=== PATIENT | male | born 1960 | race Caucasian/White ===

== ENCOUNTER 2020-07-02 23:52 | Emergency (ER) | payer MEDICARE, MEDICAID ==
[~2020-07-02] VITALS: Ht 177.8 cm; Wt 68.0 kg
[~2020-07-02 23:52] MED LIST: ASCO500C49 PO; ASPI81CH43 PO; DOCU-94 PO; HYDR12.56 PO; MAGN400S25 PO; MULT-351 PO; PEPCID PO
[2020-07-03 00:05] VITALS: BP 135/73
== END 2020-07-03 09:24 | disposition home or self-care (01) ==
LOC: EDBD 23:52 → ER 23:52
DX: S09.8XXA Other specified injuries of head, initial encounter (principal); R41.82 Altered mental status, unspecified; I10 Essential (primary) hypertension; Z86.73 Personal history of transient ischemic attack (TIA), and cerebral infarction without residual deficits; X58.XXXA Exposure to other specified factors, initial encounter; Y93.89 Activity, other specified; Y92.89 Other specified places as the place of occurrence of the external cause; Y99.8 Other external cause status
CPT/HCPCS: 70450

== ENCOUNTER 2022-05-24 20:03 | Inpatient (IN) | payer MEDICARE, MEDICAID ==
[~2022-05-24] VITALS: Ht 177.8 cm; Wt 75.7 kg
[2022-05-24] MEDS ORDERED: methylPREDNISolone SOD SUCC 125 MG/2 ML VL IV ONE (20:30)
[2022-05-24 21:15] LABS: Basophils # (auto) 0 10 ^3/uL (0-0.2); Basophils % (auto) 0.2 % (0.0-2.0); Eosinophils # (auto) 0 10 ^3/uL (0-0.8); Hematocrit 40.8 % (41.0-53.0); Hemoglobin 13.6 g/dL (13.5-17.5); Lymphocytes # (auto) 1.1 10 ^3/uL (0.4-5.4); Lymphocytes % (auto) 14.3 % (10.0-50.0); Mean Corpuscular Hgb Conc. 33.4 g/dL (32.0-36.0); Monocytes # (auto) 0.8 10 ^3/uL (0-1.3); Neutrophils % (auto) 75.5 % (37.0-80.0); Nucleated Red Blood Cells % 0.1 %; Red Blood Cells 4.54 10^6/uL (4.5-5.90); Red Cell Distribution Width 13.7 % (11.8-14.3)
[2022-05-24 21:34] LABS: Albumin 3.3 g/dL (3.4-5.0); BUN/Creatinine Ratio 18.8; Calcium 8.7 mg/dL (8.5-10.1); Magnesium 2.1 mg/dL (1.6-2.6); Potassium 3.9 mmol/L (3.5-5.1)
[2022-05-24 21:37] LABS: Bilirubin, Total 0.9 mg/dL (0.2-1.0); Total Protein 6.7 g/dL (6.4-8.2)
[2022-05-24] MEDS ORDERED: ALBUTEROL SULF 2.5 MG/0.5ML(0.5%) NEB SOLN NEB PRN (22:30)
[2022-05-24] MEDS ORDERED: ONDANSETRON HCL 4 MG/2 ML VIAL IV PRN (22:30)
[2022-05-24] MEDS ORDERED: ACETAMINOPHEN 325 MG TAB PO PRN (22:30)
[2022-05-24] MEDS ORDERED: DOCUSATE SOD 100 MG CAP PO PRN (22:30)
[2022-05-24] MEDS ORDERED: MORPHINE SULFATE INJ 2 MG/ml SYRG IV PRN ×2 (22:30)
[2022-05-24] MEDS ORDERED: TEMAZEPAM 15 MG CAP PO PRN (22:30)
[2022-05-24] MEDS ORDERED: NITROGLYCERIN 0.4 MG SL TAB SL PRN (22:30)
[2022-05-25] MEDS: AZITHROMYCIN 500MG/ 250ML 250 ML IV SCH ×2 (00:23→21:20)
[2022-05-25 03:22] LABS: Basophils # (auto) 0 10 ^3/uL (0-0.2); Basophils % (auto) 0.2 % (0.0-2.0); Eosinophils # (auto) 0 10 ^3/uL (0-0.8); Hematocrit 41.5 % (41.0-53.0); Hemoglobin 13.9 g/dL (13.5-17.5); Lymphocytes # (auto) 0.7 10 ^3/uL (0.4-5.4); Lymphocytes % (auto) 9.7 % (10.0-50.0); Mean Corpuscular Hemoglobin 30.3 pg (28.0-32.0); Mean Corpuscular Hgb Conc. 33.4 g/dL (32.0-36.0); Mean Corpuscular Volume 90.6 fL (80.0-100.0); Monocytes # (auto) 0.2 10 ^3/uL (0-1.3); Monocytes % (auto) 3.3 % (0.0-12.0); Neutrophils # (auto) 6.6 10 ^3/uL (1.6-8.6); Neutrophils % (auto) 86.8 % (37.0-80.0); Nucleated Red Blood Cells % 0.1 %; Red Blood Cells 4.58 10^6/uL (4.5-5.90); Red Cell Distribution Width 13.6 % (11.8-14.3); White Blood Cell 7.6 10^3/uL (4.4-10.8)
[2022-05-25 03:43] LABS: Albumin 3.3 g/dL (3.4-5.0); BUN/Creatinine Ratio 24.3; Calcium 8.8 mg/dL (8.5-10.1); Total Protein 7.3 g/dL (6.4-8.2)
[2022-05-25] MEDS: ENOXAPARIN SOD 40 MG/0.4 ML SYRINGE SC SCH (09:54)
[2022-05-25 11:57] VITALS: BP 119/72
[2022-05-25 16:00] VITALS: BP 127/72
[2022-05-25 20:00] VITALS: BP 144/72
[2022-05-25] MEDS: DOCUSATE SOD 100 MG CAP PO SCH (21:20)
[2022-05-25 22:00] VITALS: BP 144/72
[2022-05-26] VITALS: BP 140/75
[2022-05-26 05:00] VITALS: BP 116/60
[2022-05-26 08:00] VITALS: BP 134/70
[2022-05-26] MEDS: cefTRIAXone 1GM/50ML D5W 50 ML IV SCH (08:07)
[2022-05-26] MEDS: DexAMETHasone SOD PHOS 10MG/1ML VIAL INJ IV SCH (08:08)
[2022-05-26] MEDS: ENOXAPARIN SOD 40 MG/0.4 ML SYRINGE SC SCH (08:08)
[2022-05-26] MEDS: MILK OF MAGNESIA 30ML SUSP PO SCH (08:09)
[2022-05-26] MEDS: HCTZ 25 MG TAB PO SCH (08:09)
[2022-05-26] MEDS: ASPirin 81 mg TAB PO SCH (08:09)
[2022-05-26] MEDS: DOCUSATE SOD 100 MG CAP PO SCH ×2 (08:09→22:02)
[2022-05-26] MEDS: ASCORBIC ACID 500 MG TAB PO SCH (08:09)
[2022-05-26] MEDS: ZINC SULFATE 220mg CAP or TAB PO SCH (08:09)
[2022-05-26] MEDS: FAMOTIDINE (10MG/ML) 2ML VL IV SCH (08:09)
[2022-05-26] MEDS: MULTIPLE VITAMINS W/ MINERALS TAB PO SCH (08:10)
[2022-05-26] MEDS: CHOLECALCIFEROL (VITD3) 1,000UNIT=25mCg TAB PO SCH (08:10)
[2022-05-26 13:00] VITALS: BP 128/62
[2022-05-26 16:00] VITALS: BP 140/71
[2022-05-26 22:00] VITALS: BP 132/74
[2022-05-26] MEDS: AZITHROMYCIN 500MG/ 250ML 250 ML IV SCH (22:02)
[2022-05-27] VITALS (9 sets, daily range): BP systolic 104–129; BP diastolic 57–76
[2022-05-27 05:43] LABS: Calcium 8.8 mg/dL (8.5-10.1); Potassium 3.9 mmol/L (3.5-5.1)
[2022-05-27 05:47] LABS: Albumin 3.1 g/dL (3.4-5.0); BUN/Creatinine Ratio 21.4; Magnesium 2.1 mg/dL (1.6-2.6)
[2022-05-27 05:57] LABS: Bilirubin, Total 0.7 mg/dL (0.2-1.0); Phosphorus 2.9 mg/dL (2.5-4.90); Total Protein 6.4 g/dL (6.4-8.2)
[2022-05-27] MEDS: cefTRIAXone 1GM/50ML D5W 50 ML IV SCH (07:48)
[2022-05-27] MEDS: DexAMETHasone SOD PHOS 10MG/1ML VIAL INJ IV SCH (07:48)
[2022-05-27] MEDS: ENOXAPARIN SOD 40 MG/0.4 ML SYRINGE SC SCH (07:48)
[2022-05-27] MEDS: HCTZ 25 MG TAB PO SCH (07:48)
[2022-05-27] MEDS: FAMOTIDINE (10MG/ML) 2ML VL IV SCH (07:48)
[2022-05-27] MEDS: CHOLECALCIFEROL (VITD3) 1,000UNIT=25mCg TAB PO SCH (07:49)
[2022-05-27] MEDS: ASCORBIC ACID 500 MG TAB PO SCH (07:49)
[2022-05-27] MEDS: ASPirin 81 mg TAB PO SCH (07:49)
[2022-05-27] MEDS: MILK OF MAGNESIA 30ML SUSP PO SCH (07:49)
[2022-05-27] MEDS: DOCUSATE SOD 100 MG CAP PO SCH ×2 (07:49→21:40)
[2022-05-27] MEDS: ZINC SULFATE 220mg CAP or TAB PO SCH (07:50)
[2022-05-27] MEDS: MULTIPLE VITAMINS W/ MINERALS TAB PO SCH (07:50)
[2022-05-27] MEDS: AZITHROMYCIN 500MG/ 250ML 250 ML IV SCH (21:40)
[2022-05-28 05:00] VITALS: BP 138/82
[2022-05-28 08:00] VITALS: BP 117/77
[2022-05-28] MEDS: cefTRIAXone 1GM/50ML D5W 50 ML IV SCH (08:42)
[2022-05-28] MEDS: DexAMETHasone SOD PHOS 10MG/1ML VIAL INJ IV SCH (08:43)
[2022-05-28] MEDS: FAMOTIDINE (10MG/ML) 2ML VL IV SCH (08:43)
[2022-05-28] MEDS: ASPirin 81 mg TAB PO SCH (10:14)
[2022-05-28] MEDS: MULTIPLE VITAMINS W/ MINERALS TAB PO SCH (10:15)
[2022-05-28] MEDS: MILK OF MAGNESIA 30ML SUSP PO SCH (10:15)
[2022-05-28] MEDS: HCTZ 25 MG TAB PO SCH (10:15)
[2022-05-28] MEDS: ZINC SULFATE 220mg CAP or TAB PO SCH (10:15)
[2022-05-28] MEDS: DOCUSATE SOD 100 MG CAP PO SCH (10:15)
[2022-05-28] MEDS: CHOLECALCIFEROL (VITD3) 1,000UNIT=25mCg TAB PO SCH (10:16)
[2022-05-28] MEDS: ENOXAPARIN SOD 40 MG/0.4 ML SYRINGE SC SCH (10:16)
[2022-05-28] MEDS: ASCORBIC ACID 500 MG TAB PO SCH (10:16)
[2022-05-28 12:00] VITALS: BP 118/64
[2022-05-28 16:00] VITALS: BP 114/49
== END 2022-05-28 20:10 | DRG 177 ==
LOC: ER 20:03 → EDBD 20:03 → TELE 22:22 → TELE-CENTR 05-25 11:51
PROVIDERS: ADMIT Internal Medicine; ATTEND Internal Medicine
DX: U07.1 COVID-19 (principal); J12.82 Pneumonia due to coronavirus disease 2019; J96.01 Acute respiratory failure with hypoxia; J98.11 Atelectasis; I69.351 Hemiplegia and hemiparesis following cerebral infarction affecting right dominant side; G80.9 Cerebral palsy, unspecified; I10 Essential (primary) hypertension; Z79.82 Long term (current) use of aspirin; Z79.899 Other long term (current) drug therapy
CPT/HCPCS: 36415; 71045; 80053; 83605; 83735; 83880; 84100; 84484; 85025; 85379; 87081; 87426; 87804; 93005; 93970; 96365; 96372; 96375; G0378; J0696; J1100; J3490